=== PATIENT | male | born 1985 | race African-American/Black ===

== ENCOUNTER 2018-05-21 19:05 | Emergency (ER) | payer MEDICAID ==
[~2018-05-21] VITALS: Ht 195.6 cm; Wt 104.3 kg
[2018-05-21] MEDS ORDERED: AZITHROMYCIN 250 MG TAB PO ONE (23:15)
[2018-05-21] MEDS ORDERED: cefTRIAXone SOD 1,000 MG VL IM ONE (23:15)
[2018-05-21 23:41] VITALS: BP 115/72
[2018-05-21] MEDS ORDERED: methylPREDNISolone SOD SUCC 125 MG/2 ML VL IM ONE (23:45)
[2018-05-21] MEDS ORDERED: diphenhdrAMINE HCL 25 MG CAP PO ONE (23:45)
== END 2018-05-22 00:01 | disposition home or self-care (01) ==
LOC: ER 19:10
DX: A54.9 Gonococcal infection, unspecified (principal); F17.210 Nicotine dependence, cigarettes, uncomplicated
CPT/HCPCS: 96372; 99283; J0696; J2930

== ENCOUNTER 2021-01-01 03:16 | Emergency (ER) | payer MEDICAID ==
[~2021-01-01] VITALS: Ht 182.9 cm; Wt 97.5 kg
[2021-01-01 03:23] VITALS: BP 120/60
[2021-01-01] MEDS ORDERED: SODIUM CHLORIDE 0.9% 1,000 ML IV ONE (03:45)
[2021-01-01 04:54] LABS: Albumin 3.7 g/dL (3.4-5.0); Anion Gap 6 (5-15); Blood Alcohol < 3.0 mg/dL (0-5); Blood Urea Nitrogen 13 mg/dL (7-18); Carbon Dioxide 28 mmol/L (21-32); Chloride 108 mmol/L (98-107); Glucose 81 mg/dL (74-106); Magnesium 2.3 mg/dL (1.6-2.6); Potassium 3.4 mmol/L (3.5-5.1); Sodium 142 mmol/L (136-145)
[2021-01-01 04:57] LABS: Alanine Aminotransferase 26 U/L (16-61); Alkaline Phosphatase 84 U/L (45-117); Aspartate Aminotransferase 32 U/L (15-37); Bilirubin, Total 1.1 mg/dL (0.2-1.0); GFR African American 71 mL/min; GFR Non-African American 59 mL/min; Total Protein 7.3 g/dL (6.4-8.2)
[2021-01-01 04:58] LABS: Salicylate < 1.7 mg/dL (2.8-20.0)
[2021-01-01 05:20] LABS: Acetaminophen < 2.0 ug/mL (10-30)
== END 2021-01-01 04:09 | disposition left against medical advice (07) ==
LOC: ER 03:16 → EDBD 03:16 → ER 04:09
DX: F15.129 Other stimulant abuse with intoxication, unspecified (principal); T40.7X5A Adverse effect of cannabis (derivatives), initial encounter; Y92.89 Other specified places as the place of occurrence of the external cause
CPT/HCPCS: 36415; 80053; 80320; 80329; 83735; 93005